=== PATIENT | female | born 1970 | race African-American/Black ===

== ENCOUNTER 2019-03-28 14:11 | Emergency (ER) | payer MEDICAID ==
[~2019-03-28] VITALS: Ht 162.6 cm; Wt 64.0 kg
[2019-03-28 14:18] VITALS: BP 130/90
[2019-03-28 15:38] LABS: BASOPHILS % 1.7 % (0.0-2.0); EOSINOPHILS % 0.5 % (0.0-5.0); HEMATOCRIT. 38.2 % (36.0-48.0); HEMOGLOBIN. 12.9 g/dL (12.0-16.0); LYMPHOCYTES % 37.9 % (20.0-50.0); MEAN CORPUSCULAR HEMOGLOBIN 35.1 pg (28.0-32.0); MEAN CORPUSCULAR VOLUME 104.1 fL (81.0-99.0); MEAN PLATELET VOLUME 6.9 fl (7.4-10.4); MONOCYTES % 12.3 % (2.0-8.0); NEUTROPHILS % 47.6 % (40.0-76.0); PLATELET 203 x1000/uL (130-400); RED BLOOD CELL COUNT 3.67 mill/uL (4.2-5.4)
[2019-03-28 15:44] LABS: CHLORIDE 107 mEq/L (98-107)
[2019-03-28 16:02] LABS: ETHANOL BLOOD 407 mg/dL
== END 2019-03-28 19:30 | disposition home or self-care (01) ==
LOC: ER 14:11
DX: T51.91XA Toxic effect of unspecified alcohol, accidental (unintentional), initial encounter (principal); R55 Syncope and collapse; I10 Essential (primary) hypertension; Y90.8 Blood alcohol level of 240 mg/100 ml or more; Z88.0 Allergy status to penicillin; Y92.89 Other specified places as the place of occurrence of the external cause
CPT/HCPCS: 36415; 80320; 93005; 99284; G0480